=== PATIENT | female | born 1960 | race Caucasian/White ===

== ENCOUNTER 2019-06-15 15:22 | Outpatient (CLI) | payer MEDICARE ==
--- NOTE | 2019-06-15 15:43 | RAD ---
Lumbar spine 2 views: 06/15/2019 COMPARISON: 03/14/2014 HISTORY: Low back pain FINDINGS: Stable L5 and S1 left-sided pedicle screw with vertically oriented interlocking kamaljit. There is anterolisthesis of L4 on L5 measuring 1.4 cm, stable. Stable multilevel lumbar spine disc space narrowing and degenerative endplate change, most prominent at L4-5 and L5-S1. Multilevel lower lumbar spine facet hypertrophy is stable. No acute osseous abnormality. IMPRESSION: Stable postoperative and degenerative change within the lumbar spine as above. Stable ant erolisthesis at L4-5.
--- NOTE | 2019-06-15 15:45 | RAD ---
Cervical spine 4 views: 06/15/2019 COMPARISON: 05/06/2015 HISTORY: Neck pain FINDINGS: Multilevel mid cervical spine facet and uncovertebral osteophyte formation noted, left grea ter than right, most prominent at the C4-5, C5-6, and C6-7 levels. The lateral exam demonstrates multilevel disc space narrowing with degenerative endplate change and anterior osteophyte formation, most prominent at C4-5, C5-6, and C6-7. Mild anterolisthesis measuring 2-3 mm noted at C6-7. No prevertebral soft tissue swelling. Open-mouth odontoid view demonstrates a normal-appearing dens a nd C1-2 articulation. IMPRESSION: Multilevel degenerative change within the cervical spine as described above.
== END 2019-06-15 15:23 | disposition home or self-care (01) ==
LOC: BICRAD 15:22
PROVIDERS: ATTEND Neurological Surgery
DX: M54.5 Low back pain (principal); M54.2 Cervicalgia; M47.812 Spondylosis without myelopathy or radiculopathy, cervical region; M47.816 Spondylosis without myelopathy or radiculopathy, lumbar region; M43.16 Spondylolisthesis, lumbar region; Z98.890 Other specified postprocedural states
CPT/HCPCS: 72040; 72100

== ENCOUNTER 2020-10-29 21:01 | Emergency (ER) | payer MEDICARE | END 2020-10-29 21:46 | disposition home or self-care (01) | LOC: ERS 21:01 | DX: B02.9 Zoster without complications (principal); E05.90 Thyrotoxicosis, unspecified without thyrotoxic crisis or storm; F17.210 Nicotine dependence, cigarettes, uncomplicated; Z79.899 Other long term (current) drug therapy | CPT/HCPCS: 99282 ==

== ENCOUNTER 2021-01-13 10:30 | Emergency (ER) | payer MEDICARE ==
[2021-01-13] MEDS ORDERED: Acetaminophen 500 MG TAB ONE (11:05)
[2021-01-13] MEDS ORDERED: Morphine 4 MG/ML VIAL ONE (11:05)
[2021-01-13] MEDS ORDERED: Ketorolac Tromethamine 30 MG/ML VIAL ONE (11:05)
== END 2021-01-13 12:09 | disposition home or self-care (01) ==
LOC: ERS 10:30
DX: M54.5 Low back pain (principal); M25.551 Pain in right hip; F17.210 Nicotine dependence, cigarettes, uncomplicated; Z79.899 Other long term (current) drug therapy
CPT/HCPCS: 72100; 96372; J1885; J2270

== ENCOUNTER 2024-03-02 23:21 | Emergency (ER) | payer MEDICARE ==
[2024-03-03] MEDS ORDERED: Pantoprazole 40 MG VIAL ONE (00:39)
[2024-03-03] MEDS ORDERED: Ondansetron PF 4 MG/2 ML Vial ONE (00:39)
[2024-03-03 00:54] LABS: #Basophils 0.09 10x3/uL (0.0-0.2); %Basophils 0.9 % (0.0-1.0); %Eosinophils 5.3 % (0.0-10.0); %Monocytes 8.8 % (0.0-10.0); %Neutrophils 59.6 % (42.0-75.0); Hematocrit 35.4 % (36.0-47.0); Hemoglobin 12.2 g/dL (12.0-16.0); Mean Corpuscular HGB CONC 34.5 g/dL (32.0-36.0); Mean Corpuscular Hemoglobin 30.8 pg (27.0-31.0); Mean Corpuscular Volume 89.4 fL (78.0-98.0); Mean Platelet Volume 8.4 fL (7.4-10.4); Platelet Count 488 10x3/uL (130-400); RBC Distribution Width 12.4 % (11.5-14.5); Red Blood Cell (RBC) Count 3.96 mill/uL (4.20-5.40)
[2024-03-03 00:58] LABS: Bacteria/HPF None Seen HPF (None Seen); Bilirubin Negative (Negative); Blood, Urine Negative (Negative); CAUTI Indications for Culture Pelvic or flank pain; Clarity Clear (Clear); Glucose, Urine (Dipstick) Normal (Negative); Ketone, Urine Negative (Negative); Leukocyte 25 Leu/uL (Negative); Nitrite Negative (Negative); Protein, Urine (Dipstick) Negative (Neg-Trace); RBC/HPF 0-3 HPF (0-3); Specific Gravity, Urine 1.005 (1.002-1.036); Squamous Epithelial 0-3 HPF (0-3); Urobilinogen Normal mg/dL (Less than 2); pH, Urine 6.5 (5.0-9.0)
[2024-03-03 01:01] LABS: Urine Culture Reflex No No
[2024-03-03 01:11] LABS: ALT (SGPT) 53 U/L (8-55); AST (SGOT) 49 U/L (5-34); Alkaline Phosphatase 92 U/L (40-110); Anion Gap 11 mmol/L (10-20); BUN (Urea Nitrogen) 14 mg/dL (9.8-20.1); Bilirubin, Total 0.2 mg/dL (0.2-1.2); Calc. Creatinine Clearance 0 mL/min (70-130); Calcium 8.9 mg/dL (7.8-10.44); Carbon Dioxide 26 mmol/L (23-31); Chloride 103 mmol/L (98-107); Estimated GFR 99; Globulin 3.7 g/dL (2.4-3.5); Glucose 97 mg/dL (80-115); Lipase 25 U/L (8-78); Potassium 4.2 mmol/L (3.5-5.1); Protein, Total 6.7 g/dL (5.8-8.1); Sodium 136 mmol/L (136-145)
[2024-03-03] MEDS ORDERED: Lactulose 20 GM (30 mL) UDCUP ONE (03:37)
[2024-03-03] MEDS ORDERED: Iopamidol-370 76% 500 ML MDV (1 ML CHARGE) ONE (12:16)
== END 2024-03-03 04:05 | disposition home or self-care (01) ==
LOC: ERS 23:21
DX: K59.00 Constipation, unspecified (principal); K76.89 Other specified diseases of liver; E78.00 Pure hypercholesterolemia, unspecified; F32.9 Major depressive disorder, single episode, unspecified; E05.90 Thyrotoxicosis, unspecified without thyrotoxic crisis or storm; F17.210 Nicotine dependence, cigarettes, uncomplicated; Z55.6 Problems related to health literacy
CPT/HCPCS: 74018; 74177; 80053; 81001; 83690; 85025; 93005; C9113; J2405; Q9967; 96374; 96375

== ENCOUNTER 2024-03-06 19:59 | Emergency (ER) | payer MEDICARE ==
[2024-03-06] MEDS ORDERED: Lactulose 20 GM (30 mL) UDCUP ONE (22:27)
== END 2024-03-06 22:40 | disposition home or self-care (01) ==
LOC: ERS 19:59
DX: K59.00 Constipation, unspecified (principal); F17.210 Nicotine dependence, cigarettes, uncomplicated
CPT/HCPCS: 99283

== ENCOUNTER 2024-03-11 12:45 | Emergency (ER) | payer MEDICARE | END 2024-03-11 14:21 | disposition home or self-care (01) | LOC: ERS 12:45 | DX: K59.00 Constipation, unspecified (principal); F17.210 Nicotine dependence, cigarettes, uncomplicated | CPT/HCPCS: 99282 ==

== ENCOUNTER 2024-04-20 08:56 | Day surgery (SDC) | payer MEDICARE ==
[2024-04-20 09:49] LABS: #Basophils 0.05 10x3/uL (0.0-0.2); %Basophils 0.7 % (0.0-1.0); %Lymphocytes 23.4 % (21.0-51.0); %Monocytes 8.7 % (0.0-10.0); %Neutrophils 58.8 % (42.0-75.0); Hematocrit 37.6 % (36.0-47.0); Hemoglobin 12.6 g/dL (12.0-16.0); Mean Corpuscular HGB CONC 33.5 g/dL (32.0-36.0); Mean Corpuscular Hemoglobin 31.1 pg (27.0-31.0); Mean Corpuscular Volume 92.8 fL (78.0-98.0); Mean Platelet Volume 9.2 fL (7.4-10.4); Platelet Count 295 10x3/uL (130-400); RBC Distribution Width 15.3 % (11.5-14.5); Red Blood Cell (RBC) Count 4.05 mill/uL (4.20-5.40)
[2024-04-20 10:09] LABS: PTT 29.6 sec (22.9-36.1); Prothrombin Time 12.9 sec (12.0-14.7)
[2024-04-20] MEDS ORDERED: Sodium Bicarbonate 0.5 MEQ/ML SDV 10 ML ONE (10:59)
[2024-04-20] MEDS ORDERED: Sodium Chloride 0.9% 500 ML ONE (10:59)
[2024-04-20] MEDS ORDERED: CEFAZOLIN 1 GM VIAL ONE (11:30)
[2024-04-20] MEDS ORDERED: CEFAZOLIN 2 GM VIAL ONE (11:31)
[2024-04-20] MEDS ORDERED: Lidocaine 1% w/Epinephrine 1:100K 20 ML VIAL ONE (11:31)
[2024-04-20 15:40] VITALS: BMI 18.6
== END 2024-04-20 14:30 | disposition home or self-care (01) ==
LOC: SPEC 08:56
PROVIDERS: ATTEND Internal Medicine Hematology & Oncology
PROC: 0JH63WZ Insertion of Totally Implantable Vascular Access Device into Chest Subcutaneous Tissue and Fascia, Percutaneous Approach (ICD-10-PCS; principal; 2024-04-20)
DX: C18.7 Malignant neoplasm of sigmoid colon (principal); F41.9 Anxiety disorder, unspecified; F32.A Depression, unspecified; Z79.899 Other long term (current) drug therapy
CPT/HCPCS: 36561; 71045; 71046; 76937 ×2; 77001 ×2; 85025; 85610; 85730; C1788; C1894; J0690; J7030; 99152; 99153; J1642

== ENCOUNTER 2024-07-17 08:00 | Outpatient (CLI) | payer MEDICARE, OTHER | END 2024-07-17 08:01 | disposition home or self-care (01) | LOC: PET 08:00 | PROVIDERS: ATTEND Internal Medicine Hematology & Oncology | DX: C18.7 Malignant neoplasm of sigmoid colon (principal); R91.1 Solitary pulmonary nodule; Z98.890 Other specified postprocedural states | CPT/HCPCS: 78815; A9552 ==

== ENCOUNTER 2024-08-30 14:55 | Outpatient (CLI) | payer OTHER ==
[2024-08-30 16:10] LABS: #Basophils 0.06 10x3/uL (0.0-0.2); %Basophils 0.8 % (0.0-1.0); %Eosinophils 2.8 % (0.0-10.0); %Lymphocytes 26.3 % (21.0-51.0); %Monocytes 10.3 % (0.0-10.0); %Neutrophils 59.4 % (42.0-75.0); Hematocrit 39.1 % (36.0-47.0); Hemoglobin 13.4 g/dL (12.0-16.0); Mean Corpuscular HGB CONC 34.3 g/dL (32.0-36.0); Mean Corpuscular Hemoglobin 33.8 pg (27.0-31.0); Mean Corpuscular Volume 98.7 fL (78.0-98.0); Mean Platelet Volume 9.7 fL (7.4-10.4); Platelet Count 254 10x3/uL (130-400); RBC Distribution Width 15.1 % (11.5-14.5); Red Blood Cell (RBC) Count 3.96 mill/uL (4.20-5.40)
[2024-08-30 16:37] LABS: Chloride 108 mmol/L (98-107); Potassium 4.2 mmol/L (3.5-5.1); Sodium 138 mmol/L (136-145)
[2024-08-30 16:38] LABS: Albumin 3.4 g/dL (3.4-4.8); Calcium 8.6 mg/dL (7.8-10.44); Glucose 104 mg/dL (80-115)
[2024-08-30 16:39] LABS: Globulin 3.4 g/dL (2.4-3.5); Protein, Total 6.8 g/dL (5.8-8.1)
[2024-08-30 16:40] LABS: Anion Gap 11 mmol/L (10-20); Carbon Dioxide 23 mmol/L (23-31)
[2024-08-30 16:41] LABS: Alkaline Phosphatase 77 U/L (40-110); Bilirubin, Total 0.4 mg/dL (0.2-1.2)
[2024-08-30 16:43] LABS: BUN (Urea Nitrogen) 11 mg/dL (9.8-20.1)
[2024-08-30 16:44] LABS: ALT (SGPT) 18 U/L (8-55); AST (SGOT) 14 U/L (5-34)
[2024-08-30 16:59] LABS: Calc. Creatinine Clearance 0 mL/min (70-130); Estimated GFR 102
== END 2024-08-30 14:56 | disposition home or self-care (01) ==
LOC: LABBT 14:55
PROVIDERS: ATTEND Surgery
DX: Z01.818 Encounter for other preprocedural examination (principal); C18.7 Malignant neoplasm of sigmoid colon; K43.5 Parastomal hernia without obstruction or gangrene
CPT/HCPCS: 80053; 82378; 85025; 93005; 93010

== ENCOUNTER 2024-09-04 07:52 | Inpatient (IN) | payer OTHER ==
[2024-08-30 15:15] VITALS: BMI 21.2
[2024-09-04] MEDS ORDERED: Acetaminophen 325 MG TAB ONE (10:38)
[2024-09-04] MEDS ORDERED: metroNIDAZOLE 500 MG (100 mL) BAG ONE (10:38)
[2024-09-04] MEDS ORDERED: Heparin 5,000 UNITS/ML VIAL ONE (10:38)
[2024-09-04] MEDS ORDERED: Fentanyl 250 MCG/5 ML VIAL ONE (12:19)
[2024-09-04] MEDS ORDERED: Rocuronium Bromide 10 MG/ML (10ML VIAL) ONE (12:19)
[2024-09-04] MEDS ORDERED: PROPOFOL 20 ML ONE (12:19)
[2024-09-04] MEDS ORDERED: Midazolam HCl 2 mg/2 ml Vial ONE (12:20)
[2024-09-04] MEDS ORDERED: CEFAZOLIN 2 GM VIAL ONE (12:43)
[2024-09-04] MEDS ORDERED: EPINEPHrine 1 MG/ML VIAL ONE (13:13)
[2024-09-04] MEDS ORDERED: Lidocaine 1% (PF) 30 ML VIAL ONE (13:13)
[2024-09-04] MEDS ORDERED: Dexamethasone 20 MG/5 ML VIAL ONE (13:15)
[2024-09-04] MEDS ORDERED: Ondansetron PF 4 MG/2 ML Vial ONE (13:15)
[2024-09-04] MEDS ORDERED: Indocyanine Green 25 MG/10 ML VIAL ONE (14:28)
[2024-09-04] MEDS ORDERED: Ketorolac Tromethamine 30 MG (1 mL) VIAL ONE (14:47)
[2024-09-04] MEDS ORDERED: SUGAMMADEX SODIUM 200 MG/2 ML VIAL ONE (15:16)
[2024-09-04] MEDS ORDERED: Ondansetron PF 4 MG/2 ML Vial IVP PRN (15:39)
[2024-09-04] MEDS ORDERED: hydrALAZINE 20 MG/ML VIAL SLOW IVP PRN (15:39)
[2024-09-04] MEDS ORDERED: Promethazine HCl 25 MG/ML VIAL IM PRN (15:39)
[2024-09-04] MEDS ORDERED: Ipratropium/Albuterol 3 ML NEB NEB PRN (15:39)
[2024-09-04] MEDS ORDERED: fentaNYL 50 mcg/mL 1 mL Vial ONE ×2 (16:10→17:27)
[2024-09-04] MEDS: D5 1/2 NS w/20 mEq KCL 1,000 ML IV SCH (18:16)
[2024-09-04] MEDS: Morphine 2 MG/ML VIAL SLOW IVP PRN (18:38)
[2024-09-04] MEDS: Insulin Regular, Human 100 UNIT/ML 10 ML VIAL SC PRN (21:25)
[2024-09-05] MEDS: HYDROcodone/Acetaminophen 7.5/325 mg Tablet PO PRN ×2 (03:56→13:14)
[2024-09-05 05:29] LABS: #Basophils Less than 0.03 10x3/uL (0.0-0.2); #Eosinophils Less than 0.03 10x3/uL (0.0-0.7); %Basophils 0.2 % (0.0-1.0); %Lymphocytes 8.6 % (21.0-51.0); %Monocytes 8.6 % (0.0-10.0); %Neutrophils 82.2 % (42.0-75.0); Hematocrit 35.1 % (36.0-47.0); Hemoglobin 11.7 g/dL (12.0-16.0); Mean Corpuscular HGB CONC 33.3 g/dL (32.0-36.0); Mean Corpuscular Hemoglobin 33.3 pg (27.0-31.0); Mean Platelet Volume 9.4 fL (7.4-10.4); Platelet Count 220 10x3/uL (130-400); RBC Distribution Width 14.1 % (11.5-14.5); Red Blood Cell (RBC) Count 3.51 mill/uL (4.20-5.40)
[2024-09-05 06:28] LABS: Anion Gap 12 mmol/L (10-20); BUN (Urea Nitrogen) 14 mg/dL (9.8-20.1); Calc. Creatinine Clearance 80 mL/min (70-130); Calcium 7.9 mg/dL (7.8-10.44); Carbon Dioxide 19 mmol/L (23-31); Chloride 107 mmol/L (98-107); Estimated GFR 100; Glucose 152 mg/dL (80-115); Potassium 4.8 mmol/L (3.5-5.1); Sodium 133 mmol/L (136-145)
[2024-09-05] MEDS: Enoxaparin 40 MG (0.4 mL) SYRINGE SC SCH (08:44)
[2024-09-05] MEDS: FLU (Fluarix Triv) TS24-25(6MOS UP)/PF 45 MCG/0.5 ML Syringe IM ONE (08:54)
[2024-09-05] MEDS ORDERED: Acetaminophen 325 MG TAB PO PRN (15:40)
[2024-09-05] MEDS ORDERED: HYDROcodone/Acetaminophen 7.5/325 mg Tablet PO PRN ×2 (15:40)
[2024-09-07 09:46] VITALS: BP 111/74
[2024-09-07 13:34] VITALS: TEMP 97.9
== END 2024-09-07 16:25 | disposition home or self-care (01) | DRG 331 ==
LOC: SURG A 09:44 → SURG B 17:51
PROVIDERS: ADMIT Surgery; ATTEND Surgery
PROC: 0DTN4ZZ Resection of Sigmoid Colon, Percutaneous Endoscopic Approach (ICD-10-PCS; principal; 2024-09-04)
PROC: 0DTJ4ZZ Resection of Appendix, Percutaneous Endoscopic Approach (ICD-10-PCS; 2024-09-04)
PROC: 0WQF4ZZ Repair Abdominal Wall, Percutaneous Endoscopic Approach (ICD-10-PCS; 2024-09-04)
PROC: 0D1B4Z4 Bypass Ileum to Cutaneous, Percutaneous Endoscopic Approach (ICD-10-PCS; 2024-09-04)
PROC: 8E0W4CZ Robotic Assisted Procedure of Trunk Region, Percutaneous Endoscopic Approach (ICD-10-PCS; 2024-09-04)
PROC: 3E033XZ Introduction of Vasopressor into Peripheral Vein, Percutaneous Approach (ICD-10-PCS; 2024-09-04)
DX: C19 Malignant neoplasm of rectosigmoid junction (principal); K43.5 Parastomal hernia without obstruction or gangrene
CPT/HCPCS: 36415; 36416; 80048; 85025; 88305; 88309; C1776; J0171; J1100; J1644; J1650; J1815; J1885; J2250; J2272; J2405; J2704; J3010; J3480; J7042; S2900

== ENCOUNTER 2025-06-21 08:26 | Outpatient (CLI) | payer OTHER | END 2025-06-21 08:27 | disposition home or self-care (01) | LOC: BICMAMMO 08:26 | PROVIDERS: ATTEND Nurse Practitioner Family | DX: Z12.31 Encounter for screening mammogram for malignant neoplasm of breast (principal); Z85.038 Personal history of other malignant neoplasm of large intestine | CPT/HCPCS: 77063; 77067 ==